=== PATIENT | female | born 1990 | race Caucasian/White ===

== ENCOUNTER 2016-09-27 12:12 | Inpatient (IN) | payer BC, MEDICAID ==
[~2016-09-27] VITALS: Ht 162.6 cm; Wt 122.5 kg
[2016-09-27] VITALS (11 sets, daily range): BP systolic 95–140; RESP 20–24; TEMP 98.3–99.4; Ht 162.6 cm; Wt 122.5 kg
[2016-09-27] MEDS ORDERED: CEFAZOLIN (LD/OB) 100 ML IV PRN (12:25)
[2016-09-27] MEDS ORDERED: FAMOTIDINE 20 MG INJ IV PRN (12:25)
[2016-09-27] MEDS ORDERED: TERBUTALINE 1 MG/ML VIAL SUBQ PRN (12:25)
[2016-09-27] MEDS ORDERED: METOCLOPRAMIDE 10 MG/2 ML VIAL IV PUSH PRN (12:25)
[2016-09-27] MEDS ORDERED: OXYTOCIN 15 UNITS/250 ML NS 250 ML IV SCH (12:25)
[2016-09-27] MEDS ORDERED: PROMETHAZINE 25 MG/ML VIAL IV PRN (12:25)
[2016-09-27] MEDS ORDERED: ONDANSETRON 4 MG VIAL IV PRN (12:25)
[2016-09-27] MEDS ORDERED: LACT RINGERS 1,000 ML IV SCH (12:25)
[2016-09-27] MEDS ORDERED: FAMOTIDINE 20 MG TAB PO PRN (12:25)
[2016-09-27] MEDS ORDERED: LIDOCAINE 1% 30 ML PF INFILTRATE ONE (12:25)
[2016-09-27] MEDS ORDERED: ALU/MAG/SIM 30 ML UDC PO PRN (12:25)
[2016-09-27] MEDS ORDERED: LIDOCAINE 1% BUFFERED 1 ML SYR INTRADERM PRN (12:25)
[2016-09-27] MEDS ORDERED: MORPHINE 5 MG/1 ML VIAL IV PRN (12:25)
[2016-09-27] MEDS ORDERED: ROPIV/FENT 0.2%-2MCG/ML 100 ML EPIDURAL ONE (12:45)
[2016-09-27] MEDS ORDERED: FENTANYL 100 MCG/2 ML AMP ONE (12:46)
[2016-09-27] MEDS ORDERED: LACT RINGERS 500 ML IV PRN (13:25)
[2016-09-27] MEDS ORDERED: LACT RINGERS 500 ML IV ONE (13:25)
[2016-09-27] MEDS ORDERED: ROPIV/FENT 0.2%-2MCG/ML 100 ML EPIDURAL SCH (13:25)
[2016-09-27] MEDS ORDERED: SODIUM CHLORIDE 0.9% 500 ML IV PRN (13:25)
[2016-09-27] MEDS ORDERED: FENTANYL 100 MCG/2 ML AMP EPIDURAL ONE (13:25)
[2016-09-27] MEDS ORDERED: MISOPROSTOL 100 MCG TAB ONE (13:41)
[2016-09-27] MEDS ORDERED: OXYTOCIN 15 UNITS/250 ML NS 15 UNITS in PART FILL PIGGYBACK 1 EA IV SCH (14:35)
[2016-09-27] MEDS: MISOPROSTOL 200 MCG TAB PO SCH ×2 (16:10→19:08)
[2016-09-27] MEDS ORDERED: DERMOPLAST SPRAY TOPICAL PRN (17:25)
[2016-09-27] MEDS ORDERED: MAG HYDROX 30 ML UDC PO PRN (17:25)
[2016-09-27] MEDS ORDERED: TDaP 0.5 ML VIAL IM.VACC ONE (17:25)
[2016-09-27] MEDS ORDERED: ZOLPIDEM 5 MG TAB PO PRN (17:25)
[2016-09-27] MEDS ORDERED: OXYTOCIN 15 UNITS/250 ML NS 250 ML IV ONE (17:25)
[2016-09-27] MEDS ORDERED: MEASLES,MUMPS,RUBELLA VAC SUBQ.VACC ONE (17:25)
[2016-09-27] MEDS ORDERED: ASTRINGENT MED PADS 40'S TOPICAL PRN (17:25)
[2016-09-27] MEDS: Ibuprofen 600 MG TAB PO SCH ×2 (18:07→23:29)
[2016-09-27] MEDS ORDERED: **ONLY ANESTEHSIA MAY ORDER OPIATES WHILE ON EPIDURAL XX SCH (20:00)
[2016-09-28] VITALS (7 sets, daily range): BP systolic 102–129; RESP 18–20; TEMP 97.6–98.1
[2016-09-28] MEDS: Ibuprofen 600 MG TAB PO SCH ×4 (05:08→23:21)
[2016-09-28] MEDS: DOCUSATE SOD 100 MG CAP PO SCH (09:54)
[2016-09-28] MEDS: SERTRALINE 25 MG TAB PO SCH (10:32)
[2016-09-29 05:27] VITALS: BP_SYST 112; RESP 20; TEMP 98.2
[2016-09-29] MEDS: Ibuprofen 600 MG TAB PO SCH ×2 (05:39→11:31)
[2016-09-29] MEDS ORDERED: MISSING DOSE XX ONE (09:20)
[2016-09-29 09:39] VITALS: BP_SYST 121; TEMP 97.6
[2016-09-29 09:40] VITALS: RESP 20
[2016-09-29] MEDS: DOCUSATE SOD 100 MG CAP PO SCH (09:40)
[2016-09-29] MEDS: SERTRALINE 25 MG TAB PO SCH (09:40)
[2016-09-29 13:03] VITALS: BP_SYST 121; RESP 20; TEMP 97.6
== END 2016-09-29 15:00 | disposition home or self-care (01) | DRG 775 ==
LOC: LDOP 12:12 → LD 12:51 → OB 18:45
PROVIDERS: ADMIT Obstetrics & Gynecology Reproductive Endocrinology; ATTEND Obstetrics & Gynecology Reproductive Endocrinology
PROC: 10E0XZZ Delivery of Products of Conception, External Approach (ICD-10-PCS; principal; 2016-09-27)
PROC: 10907ZC Drainage of Amniotic Fluid, Therapeutic from Products of Conception, Via Natural or Artificial Opening (ICD-10-PCS; 2016-09-27)
DX: O80 Encounter for full-term uncomplicated delivery (principal); Z37.0 Single live birth; Z3A.38 38 weeks gestation of pregnancy
CPT/HCPCS: 85025